=== PATIENT | male | born 1990 | race Caucasian/White ===

== ENCOUNTER 2019-03-20 11:24 | Emergency (ER) | payer SELFPAY ==
[2019-03-20 11:35] VITALS: BP 139/57; PULSE 66; TEMP 98.5; BMI 27.3
--- NOTE | 2019-03-20 13:12 | PDOC ---
History of Present Illness - General Chief Complaint: Headache Stated Complaint: DIARRHEA Time Seen by Provider: 03/20/19 12:06 History Source: Patient Exam Limitations: No Limitations Past History - Travel Traveled outside of the country in the last 30 days: No Close contact w/someone who was outside of country & ill: No - Past Medical History Allergies/Adverse Reactions: Allergies Allergy/AdvReac Type Severity Reaction Status Date / Time No Known Allergies Allergy Verified 03/20/19 11:32 Home Medications: Ambulatory Orders Ibuprofen 600 mg PO Q6H #30 tablet 03/20/19 - Suicide/Smoking/Psychosocial Hx Smoking History: Never smoked Information on smoking cessation initiated: No Hx Alcohol Use: No Drug/Substance Use Hx: No Review of Systems - Review of Systems Able to Perform ROS?: Yes Comments:: 03/20/19 13:07 CONSTITUTIONAL: Absent: fever, chills, diaphoresis, generalized weakness, malaise, loss of appetite HEENT: Absent: rhinorrhea, nasal congestion, throat pain, throat swelling, difficulty swallowing, mouth swelling, ear pain, eye pain, visual Changes CARDIOVASCULAR: Absent: chest pain, loss of consciousness, palpitations, irregular heart rate, peripheral edema RESPIRATORY: Absent: cough, shortness of breath, dyspnea with exertion, orthopnea, wheezing, stridor, hemoptysis GASTROINTESTINAL: Present: nausea and vomiting Absent: abdominal pain, abdominal distension, nausea, vomiting, diarrhea, constipation, melena, hematochezia GENITOURINARY: Absent: dysuria, frequency, urgency, hesitancy, hematuria, flank pain, genital pain MUSCULOSKELETAL: Absent: myalgia, arthralgia, joint swelling SKIN: Absent: rash, itching, pallor HEMATOLOGIC/IMMUNOLOGIC: Absent: easy bleeding, easy bruising, lymphadenopathy, frequent infections ENDOCRINE: Absent: unexplained weight gain, unexplained weight loss, heat intolerance, cold intolerance NEUROLOGIC: Present; headache with aura Absent: headache, focal weakness or paresthesias, dizziness, unsteady gait, seizure, mental status changes, bladder or bowel incontinence PSYCHIATRIC: Absent: anxiety, depression, suicidal or homicidal ideation, hallucinations. Is the patient limited Tongan proficient: No *Physical Exam - Vital Signs Last Vital Signs Temp Pulse Resp BP Pulse Ox 98.5 F 66 17 139/57 L 99 03/20/19 11:32 03/20/19 11:32 03/20/19 11:32 03/20/19 11:32 03/20/19 11:32 - Physical Exam Comments: 03/20/19 13:09 GENERAL: Well developed, well nourished. Awake and alert. No acute distress. HEENT: Normocephalic, atraumatic. PERRLA, EOMI. No conjunctival pallor. Sclera are non- icteric. Moist mucous membranes. Oropharynx is clear. NECK: Supple. Full ROM. No JVD. Carotid pulses 2+ and symmetric, without bruits. No thyromegaly. No lymphadenopathy. CARDIOVASCULAR: Regular rate and rhythm. No murmurs, rubs, or gallops. Distal pulses are 2+ and symmetric. PULMONARY: No evidence of respiratory distress. Lungs clear to auscultation bilaterally. No wheezing, rales or rhonchi. ABDOMINAL: Soft. Non-tender. Non-distended. No rebound or guarding. No organomegaly. Normoactive bowel sounds. MUSCULOSKELETAL Normal range of motion at all joints. No bony deformities or tenderness. No CVA tenderness. EXTREMITIES: No cyanosis. No clubbing. No edema. No calf tenderness. SKIN: Warm and dry. Normal capillary refill. No rashes. No jaundice. NEUROLOGICAL: Alert, awake, appropriate. Cranial nerves 2-12 intact. No deficits to light touch and temperature in face, upper extremities and lower extremities. No motor deficits in the in face, upper extremities and lower extremities. Normoreflexic in the upper and lower extremities. Normal speech. Toes are down- going bilaterally. Gait is normal without ataxia. PSYCHIATRIC: Cooperative. Good eye contact. Appropriate mood and affect. ED Treatment Course - LABORATORY CBC & Chemistry Diagram: 03/20/19 14:44 03/20/19 14:44 Medical Decision Making - Medical Decision Making 03/20/19 13:09 The patient is a 28-year-old male with past medical history of headaches, who presents to the ER today for evaluation of headache. He states that he usually gets 1 or 2 headaches a year are very similar in nature to the one he is experiencing today. He states that he had the pain when he woke up. Usually he takes a hot shower and goes back to sleep and the headache resolves. Today he states that he was unable to go back to sleep because he had to go to work and the headache escalated. He tried taking Tylenol at home however he ended up vomiting. He also admits to visual changes on the headache started. Admits to phonophobia and photophobia. Denies fevers, chills, neck pain, shortness of breath, difficulty breathing, chest pain, constipation. History: Headache On exam ,patient is neurologically intact with no focal findings. No dysmetria dysarthria or dysdiadochokinesia. The headache came on when he woke up this morning and gradually got worse to the course of the day. Unlikely subarachnoid hemorrhages patient states he has similar headache episodes like this in the past and it is not the worst headache of his life. Basic labs, migraine cocktail ordered Reevaluate *DC/Admit/Observation/Transfer Diagnosis at time of Disposition: Migraine Qualifiers: Migraine type: unspecified Status migrainosus presence: without status migrainosus Intractability: not intractable Qualified Code(s): G43.909 - Migraine, unspecified, not intractable, without status migrainosus - Discharge Dispostion Disposition: HOME Condition at time of disposition: Stable Decision to Admit order: No - Referrals Referrals: Jason Blackwell MD [Staff Physician] - - Patient Instructions Printed Discharge Instructions: DI for Migraine Additional Instructions: You were evaluated for your headache today Please drink plenty of fluids You may take motrin 600mg eveyr 6 hours as needed for pain Follow up with neurology. A referral has been provided to you Return to the ER for worsening headache, vomiting, lightheadedness or if you have any changes in your symptoms Te evaluaron por tu dolor de kamille hoy Por favor, bony muchos lquidos. Puede floresita Motrin 600 mg cada 6 horas segn sea necesario para el dolor. Seguimiento con neurologa. Se le cortes proporcionado alanna referencia Regrese a la cory de emergencias para empeorar el dolor de kamille, vmitos, mareos o si tiene algn cambio en lily sntomas. - Post Discharge Activity Forms/Work/School Notes: Back to Work
[2019-03-20] MEDS ORDERED: SODIUM CHLORIDE 1,000 ML IV STA (14:10)
[2019-03-20] MEDS ORDERED: ACETAMINOPHEN 1000 MG/100 ML VIAL (NON FORMULARY) IVPB ONE (14:10)
[2019-03-20] MEDS ORDERED: METOCLOPRAMIDE HCL INJECTION 10 MG/2 ML VIAL IVPB ONE (14:10)
[2019-03-20] MEDS ORDERED: METOCLOPRAMIDE HCL INJECTION 10 MG/2 ML VIAL ONE (14:19)
[2019-03-20] MEDS ORDERED: ACETAMINOPHEN INJECTION 100 ML IVPB ONE (14:20)
[2019-03-20 14:58] LABS: BASO % 0.5 % (0-2.0); EOS % 0.4 % (0-4.5); HEMOGLOBIN 15.8 GM/dL (11.7-16.9); LYMPH % 19.6 % (8-40); MCH 29.7 pg (25.7-33.7); MCHC 35.2 g/dl (32.0-35.9); MEAN CELL VOLUME 84.4 fl (80-96); MEAN PLT VOLUME 7.3 fl (7.5-11.1); MONO % 5.4 % (3.8-10.2); NEUT % 74.1 % (42.8-82.8); PLATELET COUNT 227 K/MM3 (134-434); RBC 5.33 M/mm3 (4.00-5.60); RDW 13.5 % (11.9-15.9); WHITE BLOOD COUNT 6.2 K/mm3 (4.0-10.0)
[2019-03-20 15:22] LABS: INR 0.91 (0.83-1.09); PROTHROMBIN TIME (PATIENT) 10.7 SEC (9.7-13.0)
[2019-03-20 15:26] LABS: ALBUMIN 4.5 g/dl (3.4-5.0); BILIRUBIN,TOTAL 0.6 mg/dL (0.2-1); BLOOD UREA NITROGEN 15.2 mg/dL (7-18); CALCIUM 9.3 mg/dL (8.5-10.1); CREATININE 0.8 mg/dL (0.55-1.3); POTASSIUM 4.3 mmol/L (3.5-5.1); TOT PROT 7.8 g/dl (6.4-8.2)
--- NOTE | 2019-03-20 17:11 | PDOC ---
*Physical Exam - Vital Signs Last Vital Signs Temp Pulse Resp BP Pulse Ox 98.5 F 66 17 139/57 L 99 03/20/19 11:32 03/20/19 11:32 03/20/19 11:32 03/20/19 11:32 03/20/19 11:32 ED Treatment Course - LABORATORY CBC & Chemistry Diagram: 03/20/19 14:44 03/20/19 14:44 - ADDITIONAL ORDERS Additional order review: Laboratory Results 03/20/19 03/20/19 14:44 14:44 PT with INR 10.70 INR 0.91 Sodium 140 Potassium 4.3 Chloride 106 Carbon Dioxide 28 Anion Gap 5 L BUN 15.2 Creatinine 0.8 Est GFR (CKD-EPI)AfAm 140.90 Est GFR (CKD-EPI)NonAf 121.57 Random Glucose 91 Calcium 9.3 Total Bilirubin 0.6 AST 19 ALT 51 Alkaline Phosphatase 54 Total Protein 7.8 Albumin 4.5 03/20/19 14:44 RBC 5.33 MCV 84.4 MCHC 35.2 RDW 13.5 MPV 7.3 L Neutrophils % 74.1 Lymphocytes % 19.6 Monocytes % 5.4 Eosinophils % 0.4 Basophils % 0.5 - Medications Given in the ED: ED Medications Discontinued Medications Generic Name Dose Route Start Last Admin Trade Name Freq PRN Reason Stop Dose Admin Acetaminophen 1,000 mg 03/20/19 14:10 03/20/19 14:30 Ofirmev Injection - IVPB 03/20/19 14:11 1,000 mg ONCE ONE Administration Diphenhydramine HCl 12.5 mg 03/20/19 14:10 03/20/19 14:30 Benadryl Injection - IVPUSH 03/20/19 14:11 12.5 mg ONCE ONE Administration Sodium Chloride 1,000 mls @ 1,000 mls/hr 03/20/19 14:10 03/20/19 14:30 Normal Saline - IV 03/20/19 15:09 1,000 mls/hr ASDIR STA Administration Metoclopramide HCl 10 mg 03/20/19 14:10 03/20/19 14:30 Reglan Injection - IVPB 03/20/19 14:11 10 mg ONCE ONE Administration Medical Decision Making - Medical Decision Making 03/20/19 17:10 Pt seen by Midlevel Provider under my direct supervision Ancillary studies reviewed I agree with plan as outlined by Midlevel Provider *DC/Admit/Observation/Transfer Diagnosis at time of Disposition: Migraine Qualifiers: Migraine type: unspecified Status migrainosus presence: without status migrainosus Intractability: not intractable Qualified Code(s): G43.909 - Migraine, unspecified, not intractable, without status migrainosus - Discharge Dispostion Disposition: HOME Condition at time of disposition: Stable - Prescriptions Prescriptions: Ibuprofen 600 mg PO Q6H #30 tablet - Referrals Referrals: Jason Blackwell MD [Staff Physician] - - Patient Instructions Printed Discharge Instructions: DI for Migraine Additional Instructions: You were evaluated for your headache today Please drink plenty of fluids You may take motrin 600mg eveyr 6 hours as needed for pain Follow up with neurology. A referral has been provided to you Return to the ER for worsening headache, vomiting, lightheadedness or if you have any changes in your symptoms Te evaluaron por tu dolor de kamille hoy Por favor, bony muchos lquidos. Puede floresita Motrin 600 mg cada 6 horas segn sea necesario para el dolor. Seguimiento con neurologa. Se le cortes proporcionado alanna referencia Regrese a la cory de emergencias para empeorar el dolor de kamille, vmitos, mareos o si tiene algn cambio en lily sntomas. - Post Discharge Activity Forms/Work/School Notes: Back to Work
== END 2019-03-20 17:20 | disposition home or self-care (01) ==
LOC: JER 11:24
PROC: 3E033NZ Introduction of Analgesics, Hypnotics, Sedatives into Peripheral Vein, Percutaneous Approach (ICD-10-PCS; principal; 2019-03-20)
PROC: 3E033GC Introduction of Other Therapeutic Substance into Peripheral Vein, Percutaneous Approach (ICD-10-PCS; 2019-03-20)
PROC: 3E0337Z Introduction of Electrolytic and Water Balance Substance into Peripheral Vein, Percutaneous Approach (ICD-10-PCS; 2019-03-20)
DX: G43.909 Migraine, unspecified, not intractable, without status migrainosus (principal)
CPT/HCPCS: 36415; 80053; 85025; 85610; 99281-25; J0131; J7030